=== PATIENT | male | born 1935 | race African-American/Black ===

== ENCOUNTER 2022-08-07 08:40 | Day surgery (SDC) | payer MEDICARE, BC ==
[2022-08-07 07:38] VITALS: BMI 26.2
[~2022-08-07 08:40] MED LIST: FLU VACC QS2022-23(65YR UP)/PF 240 MCG/0.7 ML SYRINGE IM ONE
[2022-08-07] MEDS ORDERED: Lidocaine 1% PF 5 ML VIAL ONE (09:06)
[2022-08-07] MEDS ORDERED: Sodium Bicarbonate 2.5 MEQ/5 ML VIAL ONE (09:07)
[2022-08-07] MEDS ORDERED: Iopamidol-M 300 61% 15 ML VIAL ONE (10:44)
[2022-08-07 11:36] VITALS: BP 156/72; TEMP 97.6
== END 2022-08-07 11:20 | disposition home or self-care (01) ==
LOC: CSHRAD 08:40 → EDSTATUS 09:00 → CSHRAD 11:20
PROVIDERS: ATTEND Neurological Surgery
DX: M47.12 Other spondylosis with myelopathy, cervical region (principal); I10 Essential (primary) hypertension; M48.02 Spinal stenosis, cervical region; E78.5 Hyperlipidemia, unspecified; E11.9 Type 2 diabetes mellitus without complications; Z98.1 Arthrodesis status; Z79.899 Other long term (current) drug therapy
CPT/HCPCS: 62302; 72126